=== PATIENT | male | born 1955 | race Caucasian/White ===

== ENCOUNTER 2021-05-28 14:53 | Emergency (ER) | payer MEDICARE, MEDICAID ==
[2021-05-28] MEDS ORDERED: Sodium Chloride 0.9% 10 ML Syringe FLUSH PRN (15:59)
[2021-05-28] MEDS ORDERED: Sodium Chloride 0.9% 1,000 ML IV SCH (16:00)
[2021-05-28] MEDS ORDERED: Sodium Chloride 0.9% 10 ML SDV FLUSH ONE (16:02)
[2021-05-28] MEDS ORDERED: Iopamidol 612 MG/ML 100 ML Bottle IV PRN (16:02)
--- NOTE | 2021-05-28 16:05 | EDM.PDOC ---
<OfficerMat - Last Filed: 05/28/21 16:00> ED HPI GENERAL MEDICAL PROBLEM - General Chief Complaint: Abdominal Pain Stated Complaint: ABDOMINAL PAIN Time Seen by Provider: 05/28/21 15:49 Source of Information: Reports: Patient, Family, RN Notes Reviewed History Limitations: Reports: Physical Impairment - History of Present Illness INITIAL COMMENTS - FREE TEXT/NARRATIVE: 65-year-old gentleman presents emergency department day complaint of abdominal pain, he does have a history of cerebral palsy, he is limited to a few simple words, the majority of this history is taken by caregivers states he developed abdominal pain over the last 24 hours he felt his abdomen is more distended than usual he did have a bowel movement and passed gas. Does have a history of small bowel obstruction secondary to adhesions. They state he had fever and diarrhea with the antibiotics - Related Data Allergies Allergy/AdvReac Type Severity Reaction Status Date / Time No Known Allergies Allergy Verified 05/28/21 15:32 Home Meds: Home Meds Phenytoin [Dilantin] 3 tab PO BID 05/28/21 [History] Primidone [Mysoline] 4 tab PO BID 05/28/21 [History] diazePAM [Valium] 2.5 mg PO QID 05/28/21 [History] Past Medical History Neurological History: Reports: Cerebral Palsy - Past Surgical History GI Surgical History: Reports: Hernia, Inguinal, Small Bowel Social & Family History - Tobacco Use Tobacco Use Status *Q: Never Tobacco User ED ROS GENERAL - Review of Systems Review Of Systems: See Below Constitutional: Reports: No Symptoms Respiratory: Reports: No Symptoms Cardiovascular: Reports: No Symptoms GI/Abdominal: Reports: Abdominal Pain, Flatus. Denies: Constipation, Diarrhea, Nausea, Vomiting ED EXAM, GI/ABD - Physical Exam Exam: See Below Exam Limited By: Physical Impairment General Appearance: Alert, WD/WN, No Apparent Distress Respiratory/Chest: No Respiratory Distress GI/Abdominal Exam: Normal Bowel Sounds, Soft, Distended, Tender. No: Guarding, Rigid, Rebound Departure - Departure Disposition: Home, Self-Care 01 Clinical Impression: Abdominal pain - Discharge Information Instructions: Abdominal Pain, Adult, [id number] Referrals: SHARON FERRIS [Other] Forms: ED Department Discharge Additional Instructions: d/w patient's sisters home care measures for abdominal pain/gas to include warm moist heat or low setting heating pad to abdomen (do not allow him to sleep with it due to potential for skin burn), use of simethicone/gas-x and/or glycerin suppository to help stimulate movement of gas out rectum. patient had previously started reglan but stopped due to antibiotic related abdominal pain and have that available to restart (may use prn or on routine as directed). follow up with PCM for any further questions/concerns or return to the ER for further evaluation. Sepsis Event Note (ED) - Evaluation Sepsis Screening Result: No Definite Risk <Shannan Farrell - Last Filed: 05/28/21 19:15> Course - Vital Signs Text/Narrative:: 1809--received report from Dr Officer at change of shift/transfer of care 1849--Labs are reviewed urinalysis is negative. Stephanie panel noted for mild hyponatremia NA138 with mildly decreased [id number] anion gap mildly increased at 21 creatinine is normal at 0.6 and GFR greater than 60. He does have noted [id number] with normal AST/ALT19/12. Patient is also normal at 278. CBC is noted for mild elevation of WBC12.5 neutrophil percent of 69.9% of hemoglobin and platelets. CT scan has returned and noted for the following--bilateral atelectasis to lung bases versus infiltrates with a small bilateral pleural effusion normal cardiac size without evidence of pericardial effusion no hepatic or splenic pathology no pancreatic pathology is does have a noted distended gallbladder without any [place] systolic inflammation or evidence of biliary duct dilation index is not clearly visualized nor is there any inflammatory changes noted in the cecum. Impression is negative for any acute changes of concern 1851--in room to d/w patient's primary care givers today's ER visit results to include labs/rad. no acute changes noted. d/w them home care measures for abdominal pain/gas to include warm moist heat or low setting heating pad to abdomen (do not allow him to sleep with it due to potential for skin burn), use of simethicone/gas-x and/or glycerin suppository to help stimulate movement of gas out rectum. they had previously started reglan but stopped due to antibiotic related abdominal pain and have that available to restart (may use prn or on routine as directed). follow up with PCM for any further questions/concerns or return to the ER for further evaluation. all questions answered, ready for d/c Last Recorded V/S: Last Vital Signs Temp 96.8 F L 05/28/21 15:45 Pulse 84 05/28/21 15:45 Resp 14 05/28/21 15:45 BP 113/63 05/28/21 15:45 Pulse Ox 96 05/28/21 15:45 - Orders/Labs/Meds Orders: Active Orders 24 hr Category Date Time Status Peripheral IV Care [RC] . DIRECTED Care 05/28/21 16:00 Active Abdomen 1V Upright [CR] Stat Exams 05/28/21 16:13 Taken Iopamidol [Isovue-300 (61%)] Med 05/28/21 16:02 Active 100 ml IV . DIRECTED PRN Sodium Chloride 0.9% [Normal Saline] 1,000 ml Med 05/28/21 16:00 Active IV ASDIRECTED Sodium Chloride 0.9% [Saline Flush] Med 05/28/21 15:59 Active 10 ml FLUSH ASDIRECTED PRN Peripheral IV Insertion Adult [OM.PC] Urgent Oth 05/28/21 15:59 Ordered Medication Orders Sodium Chloride (Normal Saline) 1,000 mls @ 125 mls/hr IV ASDIRECTED GAVIN Last Admin: 05/28/21 18:09 Dose: 125 mls/hr Documented by: SARAI Iopamidol (Iopamidol 612 Mg/Ml 100 Ml Bottle) 100 ml IV . DIRECTED PRN PRN Reason: RADIOLOGY EXAM Stop: 05/29/21 16:03 Last Admin: 05/28/21 17:59 Dose: 70 ml Documented by: TAMIKO Sodium Chloride (Sodium Chloride 0.9% 10 Ml Syringe) 10 ml FLUSH ASDIRECTED PRN PRN Reason: Keep Vein Open Labs: Laboratory Tests 05/28/21 05/28/21 05/28/21 Range/Units 16:20 16:20 16:20 WBC 12.5 H (4.5-11.0) K/uL RBC 4.00 L (4.30-5.90) M/uL Hgb 13.6 (12.0-15.0) g/dL Hct 40.6 (40.0-54.0) % MCV 102 H (80-98) fL MCH 34 H (27-31) pg MCHC 34 (32-36) % Plt Count 482 H (150-400) K/uL Neut % (Auto) 69.9 H (36-66) % Lymph % (Auto) 18.9 L (24-44) % [place] % (Auto) 7.9 H (2-6) % Eos % (Auto) 3.0 (2-4) % Baso % (Auto) 0.3 (0-1) % Sodium 138 L (140-148) mmol/L Potassium 4.1 (3.6-5.2) mmol/L Chloride 99 L (100-108) mmol/L Carbon Dioxide 22 (21-32) mmol/L Anion Gap 21.1 H (5.0-14.0) mmol/L BUN 16 (7-18) mg/dL Creatinine 0.6 L (0.8-1.3) mg/dL Est Cr Clr Drug Dosing 60.64 mL/min Estimated GFR (MDRD) > 60 (>60) Glucose 85 (74-106) mg/dL Lactic Acid 2.0 (0.4-2.0) mmol/L Calcium 8.3 L (8.5-10.1) mg/dL Total Bilirubin 0.3 (0.2-1.0) mg/dL AST 19 (15-37) U/L ALT 12 (12-78) U/L Alkaline Phosphatase 161 H (46-116) U/L Total Protein 6.2 L (6.4-8.2) g/dL Albumin 2.7 L (3.4-5.0) g/dL Globulin 3.5 (2.3-3.5) g/dL Albumin/Globulin Ratio 0.8 L (1.2-2.2) Lipase 278 (73-393) U/L Urine Color (YELLOW) Urine Appearance (CLEAR) Urine pH (5.0-8.0) Ur Specific [place] (1.008-1.030) Urine Protein (NEGATIVE) mg/dL Urine Glucose (UA) (NEGATIVE) mg/dL Urine Ketones (NEGATIVE) mg/dL Urine Occult Blood (NEGATIVE) Urine Nitrite (NEGATIVE) Urine Bilirubin (NEGATIVE) Urine Urobilinogen (0.2-1.0) EU/dL Ur Leukocyte Esterase (NEGATIVE) Urine RBC (0-5) Urine WBC (0-5) Ur Epithelial Cells Amorphous Sediment Urine Bacteria Urine Mucus 05/28/21 Range/Units 18:20 WBC (4.5-11.0) K/uL RBC (4.30-5.90) M/uL Hgb (12.0-15.0) g/dL Hct (40.0-54.0) % MCV (80-98) fL MCH (27-31) pg MCHC (32-36) % Plt Count (150-400) K/uL Neut % (Auto) (36-66) % Lymph % (Auto) (24-44) % [place] % (Auto) (2-6) % Eos % (Auto) (2-4) % Baso % (Auto) (0-1) % Sodium (140-148) mmol/L Potassium (3.6-5.2) mmol/L Chloride (100-108) mmol/L Carbon Dioxide (21-32) mmol/L Anion Gap (5.0-14.0) mmol/L BUN (7-18) mg/dL Creatinine (0.8-1.3) mg/dL Est Cr Clr Drug Dosing mL/min Estimated GFR (MDRD) (>60) Glucose (74-106) mg/dL Lactic Acid (0.4-2.0) mmol/L Calcium (8.5-10.1) mg/dL Total Bilirubin (0.2-1.0) mg/dL AST (15-37) U/L ALT (12-78) U/L Alkaline Phosphatase (46-116) U/L Total Protein (6.4-8.2) g/dL Albumin (3.4-5.0) g/dL Globulin (2.3-3.5) g/dL Albumin/Globulin Ratio (1.2-2.2) Lipase (73-393) U/L Urine Color Yellow (YELLOW) Urine Appearance Clear (CLEAR) Urine pH 5.5 (5.0-8.0) Ur Specific [place] 1.015 (1.008-1.030) Urine Protein Negative (NEGATIVE) mg/dL Urine Glucose (UA) Negative (NEGATIVE) mg/dL Urine Ketones Negative (NEGATIVE) mg/dL Urine Occult Blood Negative (NEGATIVE) Urine Nitrite Negative (NEGATIVE) Urine Bilirubin Negative (NEGATIVE) Urine Urobilinogen 0.2 (0.2-1.0) EU/dL Ur Leukocyte Esterase Negative (NEGATIVE) Urine RBC 0-5 (0-5) Urine WBC 0-5 (0-5) Ur Epithelial Cells Rare Amorphous Sediment Occasional Urine Bacteria Rare Urine Mucus Occasional Meds: Medications Generic Name Dose Route Start Last Admin Trade Name Freq PRN Reason Stop Dose Admin Sodium Chloride 1,000 mls @ 125 mls/hr 05/28/21 16:00 05/28/21 18:09 Normal Saline IV 125 mls/hr ASDIRECTED GAVIN Administration Iopamidol 100 ml 05/28/21 16:02 05/28/21 17:59 Iopamidol 612 Mg/Ml 100 Ml Bottle IV 05/29/21 16:03 70 ml . DIRECTED PRN Administration RADIOLOGY EXAM Sodium Chloride 10 ml 05/28/21 15:59 Sodium Chloride 0.9% 10 Ml Syringe FLUSH ASDIRECTED PRN Keep Vein Open Discontinued Medications Generic Name Dose Route Start Last Admin Trade Name Freadore PRN Reason Stop Dose Admin Sodium Chloride 100 mls @ 3 mls/sec 05/28/21 16:15 05/28/21 17:59 Normal Saline IV 05/28/21 16:16 3 mls/sec ASDIRECTED GAVIN Administration Sodium Chloride 10 ml 05/28/21 16:02 Sodium Chloride 0.9% 10 Ml Sdv FLUSH 05/28/21 16:03 ONETIME ONE Departure - Departure Time of Disposition: 19:13 - Discharge Information *PRESCRIPTION DRUG MONITORING PROGRAM REVIEWED*: Not Applicable *COPY OF PRESCRIPTION DRUG MONITORING REPORT IN PATIENT JOSELINE: Not Applicable Sepsis Event Note (ED) - Focused Exam Vital Signs: Vital Signs Temp Pulse Resp BP Pulse Ox 05/28/21 15:45 96.8 F L 84 14 113/63 96
[2021-05-28] MEDS ORDERED: Sodium Chloride 0.9% 100 ML IV SCH (16:15)
--- NOTE | 2021-05-28 18:39 | CRLCT ---
For Patients: As a result of the Century Cures Act, medical imaging exams and procedure reports are released immediately into your electronic medical record. You may view this report before your referring provider. If you have questions, please contact your health care provider. INDICATION: Periumbilical abdominal pain. COMPARISON: None. TECHNIQUE: CT abdomen and pelvis with intravenous contrast ; Coronal and sagittal reformats. FINDINGS: Atelectatic changes and/ or infiltrates both lung bases. Small bilateral pleural effusion. Normal size cardiac silhouette without any evidence of pericardial effusion. No focal hepatic or splenic pathology . No pancreatic pathology. Distended gallbladder without any pericholecystic inflammatory changes .no evidence of biliary duct dilatation. No adrenal pathology. No kidney stones and obstructive uropathy. No retroperitoneal lymphadenopathy. No evidence of abdominal or pelvic ascites. No pneumoperitoneum or intestinal obstruction. Distended urinary bladder. Redundant sigmoid colon . Appendix is not clearly visualized; no inflammatory changes surrounding the cecum. No evidence of ventral hernia. Marked deformity of the pelvis secondary to cerebral palsy. Impression : Cause for the patient`s periumbilical abdominal pain is not evident on the CT study. Please note that all CT scans at this facility use dose modulation, iterative reconstruction, and/or weight-based dosing when appropriate to reduce radiation dose to as low as reasonably achievable. Dictated by Reji Rowe MD @ 05/28/2021 6:38:[address] Reji Rowe @ May 28 2021 6:38PM
--- NOTE | 2021-05-31 09:15 | CR ---
Abdomen 1V Upright CLINICAL HISTORY: Abdominal pain FINDINGS: No free air is identified. There are some air-filled loops of small bowel throughout. Gas pattern is nonspecific. There is scarring in the left lung base IMPRESSION: Limited study Mild gaseous distention in a nonspecific pattern.
== END 2021-05-28 19:24 | disposition home or self-care (01) ==
LOC: JP.ED 14:53
DX: R10.9 Unspecified abdominal pain (principal)
CPT/HCPCS: 36415; 74018; 74177; 80053; 81001; 83605; 83690; 85025; 99284; J7030; Q9967